=== PATIENT | female | born 1935 | race Caucasian/White ===

== ENCOUNTER → 2016-06-28 | Outpatient (CLI) | payer MEDICARE ==
[~2016-06-28] MED LIST: /INSU7030 SC; /MOM400 PO; ACET50TA PO; ATEN25TA PO; CHLO50TA3 PO; DOCU10ELUD PO; METF500T PO
--- NOTE | 2016-06-28 14:49 | REP ---
Clinical: Neoplasm. Comparison: 02/04/2013. Findings: Lung bases are clear. 1 mm calcified granuloma at the periphery of the left lower lobe noted. Visualized heart and pericardium normal. Liver demonstrates scattered stable hypodensities most compatible with cysts measuring up to approximately 1.5 cm in the posterior segment right lobe. Gallbladder is again distended with large gallstone and sludge. Spleen, pancreas, bilateral adrenal glands and left kidney are normal. Right kidney demonstrates 3 cm upper pole renal hypodensity suggesting cyst and minimally increased when compared to prior examination. The enteric system is without obstruction or acute inflammatory process and a normal terminal ileum and appendix are identified in the right lower quadrant. Scattered diverticula noted without acute diverticulitis. This demonstrates normal bladder and age-appropriate uterus/right adnexa. Left ovarian cyst is unchanged measures 4.8 cm. No pelvic fluid or ascites. No intra-abdominal or retroperitoneal adenopathy appreciated. No free air. Musculoskeletal structures demonstrate degenerative changes without focal osseous abnormality. Impression: 1. Distended gallbladder with gallstones similar to prior examination warrants correlation. 2. Hepatic and presumed right renal cysts. 3. A stable 4.8 cm left ovarian cyst corresponds with what was previously suggested as bladder diverticulum. 4. No ascites, adenopathy, mass or acute pathology appreciated. Signed by Manny Flores MD 06/28/2016 02:41 P
--- NOTE | 2016-06-28 15:04 | REP ---
CT CHEST WITHOUT CONTRAST : 06/28/2016 INDICATION: Right upper lobe mass COMPARISON: PA and lateral chest radiograph 06/18/2016, CT abdomen and pelvis 02/04/2013 with IV contrast which includes lung bases in field of view. TECHNIQUE: 3 mm contiguous spiral axial sections were performed through the chest without IV contrast. Atherosclerotic changes are noted in the aortic arch and descending thoracic aorta. The heart is not enlarged. There are moderate coronary artery calcifications, and small mediastinal vessels and/or subcentimeter lymph nodes extending from the right hilum to lobular right upper lobe mass measuring 4.2 cm craniocaudal x 3.8 cm transverse x 3.5 cm AP dimension. There is also peripheral stranding to the right apical pleura. A few small nodular foci of pleural thickening are seen within the right superior major fissure on images 37 through 46, series 204. There are no alveolar infiltrates or pleural effusions. Minimal stable fibroatelectatic changes are seen in the lingula. 9 mm cystic focus is present in the posterior segment right lobe of liver. Tiny cyst is seen within the posterior right dome of liver of 3 mm diameter. Spleen, visualized portions of pancreas within normal limits. The gallbladder has a abnormal appearance with mural thickening, and/or mass, distension for which correlation with CT abdomen and pelvis performed today is recommended. The visualized portions of stomach within normal limits. Exophytic 3.2 cm cyst noted off the lateral superior right kidney, incompletely included in view. IMPRESSION: 1. Large right upper lobe lobular mass with slightly irregular margins measuring 4.2 cm craniocaudal x 3.5 cm AP x 3.8 cm transverse dimension. There is stranding to the pleural surface as well as to the hilum. Small right hilar vessels extending into the mass also suggested. This is very concerning for bronchogenic malignancy. Biopsy is recommended. 2. Small amount of stable fibroatelectatic changes present in lingula. 3. Pleural thickening/nodularity seen within the right major fissure. 4. Abnormal gallbladder with mural thickening, enlargement ,and concern for mass. Recommend gallbladder ultrasound. Signed by Cierra Gaines MD 06/28/2016 05:28 P
== END ==
LOC: M RAD 14:07
PROVIDERS: ATTEND Physician Assistant
DX: D38.1 Neoplasm of uncertain behavior of trachea, bronchus and lung (principal); R63.4 Abnormal weight loss

== ENCOUNTER 2017-02-22 12:44 | Emergency (ER) | payer MEDICARE ==
[2017-02-22] MEDS ORDERED: EPINEPHrine 1MG/10ML SYRINGE 1.5IN IV STA ×3 (12:59)
== END 2017-02-22 15:21 | disposition expired ==
LOC: M ED 12:44 → MERGE 12:44 → EDSEX 12:44 → M ED 15:21
DX: I46.9 Cardiac arrest, cause unspecified (principal)